=== PATIENT | female | born 1930 | race Caucasian/White ===

== ENCOUNTER 2018-05-23 14:08 | Inpatient (IN) | payer MEDICARE, OTHER ==
[~2018-05-23] VITALS: Ht 154.9 cm; Wt 54.5 kg
[2018-05-23] MEDS ORDERED: LISI-660 PO (14:50)
[2018-05-23] MEDS ORDERED: MULT-952 PO (14:50)
[2018-05-23] MEDS ORDERED: NACL1 PO (14:50)
[2018-05-23] MEDS ORDERED: ASPI-1182 PO (14:50)
[2018-05-23] MEDS ORDERED: ARFO15VI2 IH (14:50)
[2018-05-23] MEDS ORDERED: PANT40TA25 PO (14:50)
[2018-05-23] MEDS ORDERED: CLON-570 PO (14:55)
[2018-05-23] MEDS ORDERED: ASCO500 PO (14:55)
[2018-05-23] MEDS ORDERED: ZINC220 PO (14:55)
[2018-05-23] MEDS ORDERED: ACET-784 PO (14:55)
[2018-05-23] MEDS ORDERED: POLY1POW PO (14:58)
[2018-05-23] MEDS ORDERED: BISA10S PR (15:02)
[2018-05-23] MEDS ORDERED: MOM30 PO (15:02)
[2018-05-23] MEDS ORDERED: FE PR (15:02)
[2018-05-23] MEDS ORDERED: SODIUM CHLORIDE 0.9% 1,000 ML IV ONE ×3 (15:15→21:30)
[2018-05-23 15:33] LABS: BASOPHILS % (AUTO) 0.3 % (0.0-2.0); EOSINOPHILS % (AUTO) 0.4 % (1.0-6.0); HEMATOCRIT 37.9 % (36-46); HEMOGLOBIN 12.8 g/dL (12.0-16.0); LYMPHOCYTES # (AUTO) 0.8 K/uL (1.0-4.8); LYMPHOCYTES % (AUTO) 14.7 % (22.0-44.0); MEAN CORPUSCULAR HEMOGLOBIN 29.8 pg (26.0-34.0); MEAN CORPUSCULAR HGB CONC 33.9 G/dL (31.0-37.0); MEAN CORPUSCULAR VOLUME 88 fL (80-100); MONOCYTES # (AUTO) 0.3 K/uL (0.1-1.0); MONOCYTES % (AUTO) 4.5 % (2.0-9.0); NEUTROPHILS # (AUTO) 4.5 K/uL (1.8-7.7); NEUTROPHILS % (AUTO) 80.1 % (40.0-70.0); PLATELET COUNT (AUTO) 179 K/uL (150-450); RED BLOOD CELL COUNT(AUTO) 4.31 MIL/uL (4.00-5.20); RED CELL DISTRIBUTION WIDTH 18.8 % (11.5-14.5)
[2018-05-23 15:45] LABS: ANION GAP 4 mmol/L (8-16); CALCIUM, TOTAL 9.4 mg/dL (8.8-10.5); CARBON DIOXIDE 36 mmol/L (22-29); CHLORIDE 96 mmol/L (98-107); CREATININE 0.39 mg/dL (0.60-1.30); GLUCOSE,RANDOM 87 mg/dL (70-110); POTASSIUM 3.8 mmol/L (3.5-5.1); SODIUM SERUM 136 mmol/L (136-145); UREA NITROGEN, BLOOD 30 mg/dL (7-18)
[2018-05-23 15:50] LABS: ALANINE AMINOTRANSFERASE 62 U/L (12-78); ALBUMIN 2.4 g/dL (3.4-5.0); ALKALINE PHOSPHATASE 147 U/L (46-116); ASPARTATE AMINOTRANSFERASE 31 U/L (15-37); BILIRUBIN,TOTAL 0.3 mg/dL (0.1-1.0); LIPASE 56 U/L (73-393); TOTAL PROTEIN, SERUM 6.6 g/dL (6.4-8.2)
[2018-05-23 15:51] LABS: GLOMERULAR FILTR. RATE CALC > 60 mL/min (>60); TROPONIN I 0.02 ng/mL (0.00-0.05)
[2018-05-23 16:02] LABS: LACTIC ACID 0.9 mmol/L (0.4-2.0)
[2018-05-23 16:08] LABS: AMMONIA < 10 umol/L (11-32)
[2018-05-23 16:16] LABS: B-TYPE NATRIURETIC PEPTIDE 80 pg/mL (0-100)
[2018-05-23 16:19] LABS: APPEARANCE,URINE CLEAR (CLEAR); BILIRUBIN,URINE NEGATIVE (NEGATIVE); GLUCOSE, URINE (UA) NEGATIVE (NEGATIVE); KETONES,URINE 40 mg/dL (NEGATIVE); LEUKOCYTE ESTERASE ,URINE NEGATIVE (NEGATIVE); NITRATE,URINE NEGATIVE (NEGATIVE); OCCULT BLOOD,URINE NEGATIVE (NEGATIVE); PH,URINE 5.5 (5.0-8.0); PROTEIN,URINE NEGATIVE (NEGATIVE); UROBILINOGEN,URINE 0.2 mg/dL (<=1.0)
[2018-05-23 16:24] LABS: AMPHET/METH SCREEN,URINE NEGATIVE (NEGATIVE); BARBITURATE SCREEN, URINE NEGATIVE (NEGATIVE); BENZODIAZEPINES SCREEN,URINE NEGATIVE (NEGATIVE); CANNABINOID SCREEN,URINE NEGATIVE (NEGATIVE); COCAINE SCREEN,URINE NEGATIVE (NEGATIVE); METHADONE SCREEN, URINE NEGATIVE (NEGATIVE); OPIATE SCREEN,URINE NEGATIVE (NEGATIVE)
[2018-05-23 16:25] LABS: PHENCYCLIDINE SCREEN,URINE NEGATIVE (NEGATIVE)
[2018-05-23 16:30] LABS: RBC,URINE 0-2 /HPF (0-2); WBC,URINE 0-2 /HPF (0-5)
[2018-05-23 16:31] LABS: BACTERIA,URINE Few /HPF (None Seen); SQUAMOUS EPITHELIAL CELL,UR Few /LPF (None Seen)
[2018-05-23 17:07] LABS: THYROID STIMULATING HORMONE 0.76 uIU/mL (0.36-3.74)
[2018-05-23] MEDS: PIPERACILLIN/TAZO 3.375 GM/D5W 50 ML IV SCH (18:27)
[2018-05-23] MEDS ORDERED: VANCOMYCIN HCL 1 GM/D5% WATER 200 ML IV SCH (19:00)
[2018-05-23] MEDS ORDERED: GADOBUTROL 1 MMOL/ML 10 ML VIAL IVP ONE (19:30)
[2018-05-23] MEDS ORDERED: ACETAMINOPHEN 325 MG TABLET PO PRN ×2 (20:00→21:30)
[2018-05-23] MEDS ORDERED: 0.9% SODIUM CHLORIDE 10 ML SYRINGE IVP PRN (20:00)
[2018-05-23] MEDS ORDERED: ONDANSETRON HCL 4 MG/2 ML VIAL IVP PRN ×2 (20:00→21:30)
[2018-05-23 20:59] VITALS: BP 133/98
[2018-05-23] MEDS ORDERED: BISACODYL 10 MG RECTAL RECTAL SUPPOSITORY PR PRN (21:30)
[2018-05-23] MEDS ORDERED: HYDROCODONE/ACETAMINOPHEN 5-325 MG TABLET PO PRN (21:30)
[2018-05-23] MEDS ORDERED: MORPHINE SULFATE 2 MG/ML SYRINGE IVP PRN (21:30)
[2018-05-23] MEDS ORDERED: MAGNESIUM HYDROXIDE SUSPENSION 30 ML UDCUP PO PRN (21:30)
[2018-05-23] MEDS ORDERED: ZOLPIDEM TARTRATE 5 MG TABLET PO PRN (21:30)
[2018-05-23] MEDS ORDERED: MORPHINE SULFATE 4 MG/ML SYRINGE IVP PRN (21:49)
[2018-05-24] VITALS (7 sets, daily range): BP systolic 101–133; BP diastolic 52–76
[2018-05-24] MEDS: PIPERACILLIN/TAZO 3.375 GM/D5W 50 ML IV SCH (00:28)
[2018-05-24] MEDS: DEXTROSE 5%-0.45% SODIUM CHL 1,000 ML IV SCH (08:58)
[2018-05-24] MEDS ORDERED: GADOBUTROL 1 MMOL/ML 10 ML VIAL IVP ONE (08:59)
[2018-05-24] MEDS: ASCORBIC ACID 500 MG TABLET PO SCH (09:00)
[2018-05-24] MEDS ORDERED: PANTOPRAZOLE SODIUM 40 MG DR TABLET PO SCH (09:00)
[2018-05-24] MEDS: DOCUSATE SODIUM 100 MG CAPSULE PO SCH ×2 (09:00→21:00)
[2018-05-24] MEDS: SODIUM CHLORIDE 1 GM TABLET PO SCH ×2 (09:00→21:00)
[2018-05-25] MEDS: DEXTROSE 5%-0.45% SODIUM CHL 1,000 ML IV SCH ×2 (03:58→11:10)
[2018-05-25 04:01] VITALS: BP 117/67
[2018-05-25 07:32] VITALS: BP 144/79
[2018-05-25] MEDS: DOCUSATE SODIUM 100 MG CAPSULE PO SCH ×2 (08:21→20:10)
[2018-05-25] MEDS: ASCORBIC ACID 500 MG TABLET PO SCH (08:21)
[2018-05-25] MEDS: SODIUM CHLORIDE 1 GM TABLET PO SCH ×2 (08:21→20:09)
[2018-05-25] MEDS: PANTOPRAZOLE SODIUM 40 MG/VIAL IVP SCH (08:21)
[2018-05-25 11:47] VITALS: BP 136/80
[2018-05-25 16:21] VITALS: BP 114/62
[2018-05-25 20:16] VITALS: BP 132/68
[2018-05-25 23:56] VITALS: BP 123/66
[2018-05-26 05:00] VITALS: BP 134/74
[2018-05-26] MEDS: DEXTROSE 5%-0.45% SODIUM CHL 1,000 ML IV SCH (06:16)
[2018-05-26 07:21] VITALS: BP 128/67
[2018-05-26] MEDS: PANTOPRAZOLE SODIUM 40 MG/VIAL IVP SCH (08:21)
[2018-05-26] MEDS: SODIUM CHLORIDE 1 GM TABLET PO SCH (08:22)
[2018-05-26] MEDS: DOCUSATE SODIUM 100 MG CAPSULE PO SCH (08:22)
[2018-05-26] MEDS: ASCORBIC ACID 500 MG TABLET PO SCH (08:23)
[2018-05-26] MEDS ORDERED: DSS100 PO (10:13)
[2018-05-26] MEDS ORDERED: NACL1 PO (10:14)
[2018-05-26 11:31] VITALS: BP 127/62
== END 2018-05-26 14:30 | DRG 70 ==
LOC: EMS 14:10 → 5N 19:30 → 5S 05-25 17:30
PROVIDERS: ADMIT Internal Medicine; ATTEND Internal Medicine
DX: G93.89 Other specified disorders of brain (principal); E43 Unspecified severe protein-calorie malnutrition; J18.9 Pneumonia, unspecified organism; R57.8 Other shock; I69.354 Hemiplegia and hemiparesis following cerebral infarction affecting left non-dominant side; R68.0 Hypothermia, not associated with low environmental temperature; R62.7 Adult failure to thrive; G93.9 Disorder of brain, unspecified; R47.02 Dysphasia; I50.9 Heart failure, unspecified; I11.0 Hypertensive heart disease with heart failure; J44.9 Chronic obstructive pulmonary disease, unspecified; Z66 Do not resuscitate; Z51.5 Encounter for palliative care; Z68.22 Body mass index [BMI] 22.0-22.9, adult
CPT/HCPCS: 51701; 70450; 70553; 71250; 82948; 83605; 84443; 87040; 87081; 92610; 93005; 96361; 96365; 96366; A9585; C9113; G0378; G0480; J2543; J3370